=== PATIENT | female | born 1965 | race Caucasian/White ===

== ENCOUNTER 2017-12-13 11:35 | Emergency (ER) | payer SELFPAY ==
--- NOTE | 2017-12-13 11:46 | C.PDOC ---
History Of Present Illness 52-year-old female brought to the ER by [employer] SALESPERSON for evaluation of possible syncopal episode. 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 States she does not recall what happened after that. Patient reports pain and a small abrasion to the right elbow, with full ROM of the extremity. She notes she is currently menstruating and bleeding very heavily, which may have contributed to possible syncope. Otherwise she denies any severe headache, dizziness, head wound/trauma , chest pain, SOB, abdominal pain, numbness, weakness, or other injuries. Time Seen by Provider: 12/13/17 11:38 Chief Complaint (Nursing): Syncope History Per: Patient History/Exam Limitations: no limitations Onset/Duration Of Symptoms: Mins Current Symptoms Are (Timing): Better Number Of Syncopal Episodes: 1 Activity At Onset Of Symptoms: Walking Seizure Or Post-ictal Symptoms: None Past Medical History Reviewed: Historical Data, Nursing Documentation, Vital Signs Vital Signs: Last Vital Signs Temp 98.2 F 12/13/17 13:06 Pulse 70 12/13/17 13:33 Resp 17 12/13/17 13:33 BP 102/65 12/13/17 13:33 Pulse Ox 100 12/13/17 13:33 - Medical History PMH: No Chronic Diseases Surgical History: No Surg Hx Family History: States: No Known Family Hx - Social History Hx Tobacco Use: No Hx Alcohol Use: No Hx Substance Use: No Review Of Systems Except As Marked, All Systems Reviewed And Found Negative. Constitutional: Negative for: Fever, Chills Cardiovascular: Negative for: Chest Pain Respiratory: Negative for: Shortness of Breath Gastrointestinal: Negative for: Abdominal Pain Genitourinary: Positive for: Vaginal Bleeding (heavy period) Musculoskeletal: Positive for: Arm Pain (elbow) Skin: Positive for: Lesions (to elbow) Neurological: Positive for: Other (Syncope). Negative for: Weakness, Numbness, Headache, Dizziness Physical Exam - Physical Exam Appears: Non-toxic, No Acute Distress Skin: Normal Color, Warm, Dry Head: Atraumatic, Normacephalic, No Tenderness, No Laceration Eye(s): bilateral: Normal Inspection, PERRL, EOMI Nose: Normal Oral Mucosa: Moist Neck: Normal ROM, No Midline Cervical Tenderness, No Paracervical Tenderness, Supple Chest: Symmetrical Cardiovascular: Rhythm Regular, No Murmur Respiratory: Normal Breath Sounds, No Rales, No Rhonchi, No Wheezing Gastrointestinal/Abdominal: Soft, No Tenderness Back: Normal Inspection Extremity: Normal ROM (with FROM of upper extremities), No Tenderness, Capillary Refill (less than 2 sec), No Deformity Pulses: Left Radial: Normal, Right Radial: Normal Neurological/Psych: Oriented x3, Normal Speech, Normal Cranial Nerves, Normal Motor, Normal Sensation, Other (No focal deficits) Gait: Steady ED Course And Treatment - Laboratory Results Result Diagrams: 12/13/17 12:20 12/13/17 12:20 Lab Interpretation: Normal Urine POC: Negative ECG: Interpreted By Me ECG Rhythm: Sinus Rhythm ECG Interpretation: Normal Rate From EC Pulse Ox Interpretation: Normal Progress Note: Treated with IVF NSS. On re-evaluation patient requesting discharge to home. ambulating with steady gait Reassessment Condition: Improved Medical Decision Making Medical Decision Making: Initial Impression: 52 y/o female with possible syncope Time: 11:43 Initial Plan: --EKG --Blood work --Urinalysis --IV fluids Disposition Counseled Patient/Family Regarding: Studies Performed, Diagnosis, Need For Followup - Disposition Referrals: [facility] [Outside] [place] [facility] [Outside] Disposition: HOME/ ROUTINE Disposition Time: 13:10 Condition: STABLE Additional Instructions: Return to ED if any increase symptoms Instructions: Syncope (Fainting) (DC), Near Fainting Forms: [facility] (Hungarian), Work Excuse - POA Present On Arrival: None - Clinical Impression Clinical Impression: Near syncope, Syncope - PA / REHEATER / Resident Statement MD/DO has reviewed & agrees with the documentation as recorded. - Scribe Statement The provider has reviewed the documentation as recorded by the Scribe (Diane Miranda) All medical record entries made by the Scribe were at my direction and personally dictated by me. I have reviewed the chart and agree that the record accurately reflects my personal performance of the history, physical exam, medical decision making, and the department course for this patient. I have also personally directed, reviewed, and agree with the discharge instructions and disposition.
[2017-12-13] MEDS ORDERED: Sodium Chloride 0.9% 1,000 ML IV ONE (11:57)
[2017-12-13] MEDS ORDERED: Sodium Chloride 0.9% 1,000 ML ONE (12:17)
--- NOTE | 2017-12-13 12:28 | PCM.RRT ---
SPIRITUAL COUNSELOR Nurses Assessment - Situation Date: 12/13/17 Time SPIRITUAL COUNSELOR was called: 11:19 SPIRITUAL COUNSELOR Responder Arrival Time:: 11:21 SPIRITUAL COUNSELOR Location:: ICU Room Number: 8 SPIRITUAL COUNSELOR Called By: RN - IV IV Inserted during SPIRITUAL COUNSELOR?: No I.Reason for SPIRITUAL COUNSELOR - A) Acute Change in Patient: (Select all that apply): Acute change in mental status Subjective: Initially code Star was called at 11:17am. Medical team came to evaluate patient who was in the ICU. At that time, it was reportedly that patient had a syncopal episode so SPIRITUAL COUNSELOR was called at 11:19am instead. 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 Unclear is syncopal episode was witnessed. On arrival of SPIRITUAL COUNSELOR, patient is sitting up in a chair and speaking to us. She states she is unsure of what happened, but states she woke up on the floor. Patient herself is unsure if she hit her head, however complains of some left elbow pain. She states she ate and drank this morning, but states her menstrual flow is heavy today. She states she took Ibuprofen at 0930 today for her menstrual cramps. PMH: denied PSH: denied CAN CONVEYOR FEEDER: currently on Day 2 of menses. Meds: multivitamin Allergies: hair dye --> pruritis Initial vital signs BP 105/73 temp 98.2 O2 97% on RA Accucheck 81 On examination, patient is alert, awake and oriented to person, place and time. print journalist 2-12 intact. EOMs intact, with no nystagmus. 5/5 strength in upper and lower extremities. Mild abrasion noted to left elbow with good ROM, no obvious deformity, no edema. Radial pulses intact. Regular, rate and rhythm with S1, S2. Lungs were clear to auscultation, no rhonchi, rales or wheezes. - Neurological Status (Select all that apply): Alert, Oriented, Follows Commands - Constitutional Appears: Well, No Acute Distress - Head Head Exam: ATRAUMATIC, NORMOCEPHALIC - Eyes Eye Exam: EOMI - Respiratory Exam Respiratory Exam: Clear to Ausculation Bilateral, NORMAL BREATHING PATTERN. absent: Rales, Rhonchi, Wheezes, Respiratory Distress - Cardiovascular Exam Cardiovascular Exam: REGULAR RHYTHM, +S1, +S2 - GI/Abdominal Exam GI & Abdominal Exam: Soft. absent: Distended, Guarding, Rigid, Tenderness, Diminished Bowel Sounds - Neurological Exam Neurological Exam: Alert, Awake, CN II-XII Intact, Oriented x3 Additional exam: Equal strength in upper and lower extremities bilaterally. print journalist 2-12 intact. 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 Code star was called at 1117 and rapid response was called at 1119 for syncopal episode. Unclear if patient hit her head, complains of left elbow pain. * VS BP 105/73 Temp 98.2 O2 97% on RA blood glucose 81 * Alert and oriented x3, sitting up in chair talking to us * Transferred to the ED for further evaluation Case discussed with Dr. Jovon Lopez, PGYI
[2017-12-13 12:35] LABS: BASO % 0.4 % (0.0-2.0); EOS # 0.1 K/uL (0.0-0.7); EOS % 1.4 % (0.0-4.0); HCG,QUALITATIVE URINE NEGATIVE (NEGATIVE); HEMOGLOBIN 12.1 g/dL (11.0-16.0); LYMPH # 2.2 K/uL (1.0-4.3); LYMPH % 26.7 % (20.0-40.0); MEAN CELL VOLUME 85.6 fL (81.0-99.0); MEAN CORPUSCULAR HEMOGLOBIN 29.3 pg (27.0-31.0); MEAN CORPUSCULAR HGB CONC 34.2 g/dL (33.0-37.0); MEAN PLATELET VOLUME 7.3 fL (7.2-11.7); MONO # 0.8 K/uL (0.0-0.8); MONO % 9.2 % (0.0-10.0); NEUT # 5.2 K/uL (1.8-7.0); NEUT % 62.3 % (50.0-75.0); RBC 4.13 Mil/uL (3.80-5.20); RED CELL DISTRIBUTION WIDTH 13.3 % (11.5-14.5); WHITE BLOOD COUNT 8.3 K/uL (4.8-10.8)
[2017-12-13 12:41] LABS: SQUAMOUS EPITHIAL < 1 /hpf (0-5); URINE BILIRUBIN NEGATIVE (NEGATIVE); URINE BLOOD 3+ (NEGATIVE); URINE CLARITY Hazy (Clear); URINE COLOR Yellow (YELLOW); URINE GLUCOSE (UA) NORMAL (Normal); URINE LEUKOCYTE ESTERASE NEG Leu/uL (Negative); URINE PROTEIN NEGATIVE (NEGATIVE); URINE UROBILINOGEN NORMAL mg/dL (0.2-1.0)
[2017-12-13 12:44] LABS: ALB/GLOB RATIO 1.4 (1.0-2.1); ALBUMIN 3.9 g/dL (3.5-5.0); ALT/SGPT 25 U/L (9-52); AST/SGOT 21 U/L (14-36); BLOOD UREA NITROGEN 9 mg/dL (7-17); CALCIUM 8.7 mg/dl (8.6-10.4); GFR AFRICAN-AMERICAN > 60; GFR NON-AFRICAN AMERICAN > 60
[2017-12-13 13:04] VITALS: O2SAT 100
[2017-12-13 13:06] VITALS: TEMP 98.2
[2017-12-13 13:33] VITALS: BP 102/65; PULSE 70; RESP 17
--- NOTE | 2017-12-15 12:25 | CARD ---
APPROVED REPORT Date of service: 12/13/2017 EKG Measurement Heart [id number] <Conclusion> Normal sinus rhythm Normal ECG
== END 2017-12-13 13:35 | disposition home or self-care (01) ==
LOC: C.ER 11:35
DX: R55 Syncope and collapse (principal)
CPT/HCPCS: 80053; 81001; 82948; 84703; 85025; 93005; 96360; 99285; J7030